=== PATIENT | female | born 1965 | race African-American/Black ===

== ENCOUNTER 2018-01-21 08:26 | Emergency (ER) | payer SELFPAY ==
[~2018-01-21] VITALS: Ht 170.2 cm; Wt 135.0 kg
[~2018-01-21 08:26] MED LIST: GUAI100S6 PO; ZITH250T PO
[2018-01-21 08:30] VITALS: BP 150/74; PULSE 92; RESP 19; TEMP 99.1; O2SAT 95
[2018-01-21] MEDS ORDERED: SODIUM CHLOR 0.9% 1000 ML INJ 1,000 ML IV ONE (11:15)
[2018-01-21] MEDS ORDERED: ONDANSETRON HCL 4 MG/2 ML VIAL IV PUSH ONE (11:15)
[2018-01-21] MEDS ORDERED: SODIUM CHLORIDE 0.9% FLUSH 10 ML FLUSH IVF PRN (11:15)
--- NOTE | 2018-01-21 11:18 | PD ---
HPI . weakness Chief Complaint: General Weakness Time Seen by Provider: 11:09 Travel History International Travel<30 days: No Contact w/Intl Traveler<30days: No Traveled to known affect area: No History of Present Illness HPI Weakness assoc with nausea and cough X 3 days. SSX wax and wane. No modifying factor. Mild. Cough is [employer]. Tmax 101. PFSH Past Medical History Medical History: Denies Significant Hx ?: Not LMP: 11/2017 Past Surgical History Surgical History: No Previous Surgery Social History Alcohol Use: Yes (occasionally ) Tobacco Use: No Substance Use: No Allergies-Medications (Allergen,Severity, Reaction): Coded Allergies: No Known Allergies (Verified Adverse Reaction, Unknown, 01/21/18) Reported Meds & Prescriptions Reported Meds & Active Scripts Active Review of Systems Except as stated in HPI: all other systems reviewed are Neg General / Constitutional: Positive: Fever, Chills Respiratory: Positive: Cough Gastrointestinal: Positive: Nausea Neurologic: Positive: Weakness Physical Exam Narrative GEN: A & O. NAD. EYES: no injection or d/c ENT: no erythema of oropharynx NECK: supple without adenopathy RESP: nonlabored. clear lungs. CARDIAC: RRR with normal HS ABD: soft and NT EXT: atraumatic NEURO: A&O X 3. MARTINEZ equally. PSYCH: normal affect. Data Data Last Documented VS Vital Signs Date Time Temp Pulse Resp B/P (MAP) Pulse Ox O2 Delivery O2 Flow Rate FiO2 01/21/18 11:07 18 01/21/18 08:30 99.1 92 150/74 (99) 95 Orders Orders Basic Metabolic Panel (Bmp) (01/21/18 11:09) Complete Blood Count With Diff (01/21/18 11:09) Lactic Acid Sepsis Protocol (01/21/18 11:09) Blood Culture (01/21/18 11:09) Chest, Pa & Lat (01/21/18 11:09) Iv Access Insert/Monitor (01/21/18 11:09) Sodium Chloride 0.9% Flush (Ns Flush) (01/21/18 11:15) Ondansetron Inj (Zofran Inj) (01/21/18 11:15) Sodium Chlor 0.9% 1000 Ml Inj (Ns 1000 M (01/21/18 11:15) Ondansetron Odt (Zofran Odt) (01/21/18 11:30) Potassium Chloride (Kcl) (01/21/18 12:45) Labs Laboratory Tests Test 01/21/18 11:15 01/21/18 11:34 White Blood Count 4.5 TH/MM3 Red Blood Count 4.03 MIL/MM3 Hemoglobin 10.4 GM/DL Hematocrit 31.2 % Mean Corpuscular Volume 77.6 FL Mean Corpuscular Hemoglobin 25.8 PG Mean Corpuscular Hemoglobin Concent 33.2 % Red Cell Distribution Width 15.3 % Platelet Count 287 TH/MM3 Mean Platelet Volume 7.9 FL Neutrophils (%) (Auto) 70.8 % Lymphocytes (%) (Auto) 19.7 % Monocytes (%) (Auto) 8.8 % Eosinophils (%) (Auto) 0.2 % Basophils (%) (Auto) 0.5 % Neutrophils # (Auto) 3.2 TH/MM3 Lymphocytes # (Auto) 0.9 TH/MM3 Monocytes # (Auto) 0.4 TH/MM3 Eosinophils # (Auto) 0.0 TH/MM3 Basophils # (Auto) 0.0 TH/MM3 CBC Comment DIFF FINAL Differential Comment Blood Urea Nitrogen 26 MG/DL Creatinine 1.58 MG/DL Random Glucose 87 MG/DL Calcium Level 8.4 MG/DL Sodium Level 136 MEQ/L Potassium Level 3.4 MEQ/L Chloride Level 100 MEQ/L Carbon Dioxide Level 27.9 MEQ/L Anion Gap 8 MEQ/L Estimat Glomerular Filtration Rate 42 ML/MIN Lactic Acid Level 0.8 mmol/L MDM Medical Decision Making Medical Screen Exam Complete: Yes Emergency Medical Condition: Yes Differential Diagnosis viral syndrome, pneumonia, bronchitis Narrative Course presents with weakness, nausea and cough. CXR, labs ordered. Zofran for nausea. Last Impressions Chest X-Ray 01/21/18 1109 Signed Impressions: Service Date/Time: December 11:58 - CONCLUSION: No acute disease. Adithya Torres MD The chest x-ray was independently reviewed by ct CBC & BMP Diagram 01/21/18 11:15 Calcium Level 8.4 L She is receiving a liter of fluid. Her potassium will be replaced orally. She will then be discharged home. Diagnosis Primary Impression: Weakness Additional Impressions: Cough Hypokalemia Patient Instructions: Acute Cough (ED), General Instructions Additional Instructions: Drink lots of fluids. Take an [id number] cold medicine as needed for the cough. Disposition: 01 DISCHARGE HOME Condition: Stable Rimma Beavers MD Jan 21, 2018 11:18
[2018-01-21] MEDS ORDERED: ONDANSETRON ODT 4 MG TAB PO ONE (11:30)
--- NOTE | 2018-01-21 12:02 | RADRPT ---
EXAM DATE/TIME: 01/21/2018 11:58 [facility] COMPARISON: No previous studies available for comparison. INDICATIONS : Short of breath and congestion. MEDICAL HISTORY : None. SURGICAL HISTORY : None. ENCOUNTER: Initial ACUITY: 3 days PAIN SCORE: 0/10 LOCATION: Bilateral chest FINDINGS: PA and lateral views of the chest demonstrate the lungs to be symmetrically aerated without evidence of mass, infiltrate or effusion. Mild elevation of the right hemidiaphragm. The cardiomediastinal co ntours are unremarkable. Osseous structures are intact. CONCLUSION: No acute disease. Adithya Torres MD on January 21, 2018 at 12:00 Board Certified Radiologist. This report was verified electronically.
[2018-01-21 12:13] LABS: AUTOMATED NEUTROPHIL # 3.2 TH/MM3 (1.8-7.7); BASOPHIL % 0.5 % (0.0-2.0); EOSINOPHIL % 0.2 % (0.0-4.0); HEMATOCRIT 31.2 % (35.0-46.0); HEMOGLOBIN 10.4 GM/DL (11.6-15.3); LYMPH % 19.7 % (9.0-44.0); LYMPHOCYTE # 0.9 TH/MM3 (1.0-4.8); MEAN CELL VOLUME 77.6 FL (80.0-100.0); MEAN CORPUSCULAR HEMOGLOBIN 25.8 PG (27.0-34.0); MEAN CORPUSCULAR HGB CONC 33.2 % (32.0-36.0); MEAN PLATELET VOLUME 7.9 FL (7.0-11.0); MONO % 8.8 % (0.0-8.0); MONOCYTE # 0.4 TH/MM3 (0-0.9); NEUT % 70.8 % (16.0-70.0); PLATELET COUNT 287 TH/MM3 (150-450); RED BLOOD COUNT 4.03 MIL/MM3 (4.00-5.30); RED CELL DISTRIBUTION WIDTH 15.3 % (11.6-17.2); WHITE BLOOD COUNT 4.5 TH/MM3 (4.0-11.0)
[2018-01-21 12:26] LABS: BICARBONATE 27.9 MEQ/L (21.0-32.0); CALCIUM 8.4 MG/DL (8.5-10.1); CREATININE 1.58 MG/DL (0.50-1.00)
[2018-01-21] MEDS ORDERED: POTASSIUM CHLORIDE 20 MEQ CONTROLLED RELEASE TAB PO ONE (12:45)
== END 2018-01-21 13:42 | disposition home or self-care (01) ==
LOC: NEPD 08:26
DX: R53.1 Weakness (principal); R05 Cough; E87.6 Hypokalemia; R11.0 Nausea
CPT/HCPCS: 71046; 80048; 83605; 85025; 87040; 96360; 99284; J7030